=== PATIENT | male | born 2000 | race Caucasian/White ===

== ENCOUNTER 2020-11-05 13:13 | Emergency (ER) | payer OTHER ==
[~2020-11-05] VITALS: Ht 180.3 cm; Wt 67.6 kg
--- NOTE | 2020-11-05 14:50 | NUR ---
BRICK SORTER: PT TO ROOM FROM [facility]
--- NOTE | 2020-11-05 14:59 | NUR ---
ANDREW RN: PT REPORTS HE HAS HAD RIGHT LOWER ABD PAIN, LEFT FLANK PAIN AND HAS A INCREASE IN URINATING. PT WAS SEEN AT THE UROLOGIST WITH NO DIAGNOSIS. VS STABLE. CALL LIGHT IN PLACE. FAMILY AT BEDSIDE. REPORT GIVEN TO MARILIA CULP
[2020-11-05 15:17] LABS: MICROSCOPIC NOT IND
[2020-11-05] MEDS ORDERED: SODIUM CHLORIDE FLUSH 10ML SYR IVF ONE (15:30)
[2020-11-05] MEDS ORDERED: ONDANSETRON 2MG/ML, 2ML IVPush ONE (15:30)
[2020-11-05] MEDS ORDERED: KETOROLAC 30 MG/1 ML IVPush ONE (15:30)
[2020-11-05] MEDS ORDERED: KETOROLAC 30 MG/1 ML ONE (15:34)
[2020-11-05] MEDS ORDERED: ONDANSETRON 2MG/ML, 2ML ONE (15:34)
[2020-11-05 15:47] LABS: BASOPHILS % (AUTO) 1 % (0-1); EOSINOPHILS % (AUTO) 0 % (1-7); LYMPHOCYTES % (AUTO) 33 % (22-44); MEAN CORPUSCULAR HEMOGLOBIN 31.4 pg (27.5-34.5); MEAN CORPUSCULAR HGB CONC 34.3 g/dL (33.2-36.2); MEAN PLATELET VOLUME 7.8 fL (7.4-10.4); MONOCYTES % (AUTO) 9 % (2-9); NEUTROPHILS % (AUTO) 57 % (42-75); PLATELET COUNT 270 x10^3/uL (130-400); RED BLOOD COUNT 4.86 x10^6/uL (4.38-5.82); RED CELL DISTRIBUTION WIDTH 12.7 % (9.4-14.8)
[2020-11-05 15:50] LABS: ALBUMIN 4.6 g/dL (3.4-5.0); CALCIUM 9.8 mg/dL (8.5-10.1); CHLORIDE 109 mmol/L (98-107); MD NO
[2020-11-05 15:52] LABS: ALANINE AMINOTRANSFERASE 20 U/L (12-78); ALKALINE PHOSPHATASE 55 U/L (45-117); BILIRUBIN,TOTAL 1.1 mg/dL (0.2-1.0); CREATININE 1.01 mg/dL (0.7-1.3); TOTAL PROTEIN 7.7 g/dL (6.4-8.2)
[2020-11-05 15:59] LABS: ANION GAP 4 mmol/L (5-15)
[2020-11-05] MEDS ORDERED: OMNIPAQUE 350 MG/ML, 100ML BOTTLE ONE (16:30)
[2020-11-05 17:32] VITALS: BP 110/70
== END 2020-11-05 17:39 | disposition home or self-care (01) ==
LOC: ED 15:38
DX: R10.31 Right lower quadrant pain (principal); R10.9 Unspecified abdominal pain; R11.2 Nausea with vomiting, unspecified; M54.5 Low back pain
CPT/HCPCS: 36415; 74177; 80053; 81003; 83690; 85025; 87491; 87591; 96374; 96375; 99285; J1885; J2405; Q9967